=== PATIENT | female | born 1990 ===

== ENCOUNTER 2020-04-30 18:39 | Outpatient (REF) | payer SELFPAY ==
[2020-05-02 15:33] LABS: COVID-19 RT-PCR UVMMC Result Negative (Negative)
== END 2020-04-30 18:40 | disposition home or self-care (01) ==
LOC: NCHCN 18:39
PROVIDERS: Visit Provider Nurse Practitioner Community Health
DX: R19.7 Diarrhea, unspecified (principal); Z20.822 Contact with and (suspected) exposure to COVID-19
CPT/HCPCS: U0003